=== PATIENT | female | born 1995 | race African-American/Black ===

== ENCOUNTER 2022-09-06 09:29 | Emergency (ER) | payer OTHER ==
[2022-09-06 09:41] VITALS: TEMP 98
[2022-09-06 10:07] VITALS: RESP 16
[2022-09-06] MEDS ORDERED: IBUPROFEN 800 MG TAB PO STA (10:16)
[2022-09-06] MEDS ORDERED: AMOXIC-POT CLAV 875-125MG 1 EACH TAB PO STA (10:18)
[2022-09-06] MEDS ORDERED: ACET/COD 300 MG/30 MG STARTER PACK 6 TAB BTL PO STA (10:20)
--- NOTE | 2022-09-06 10:20 | ED ---
General Adult HPI - General Chief complaint: Dental/Oral Stated complaint: Dental issues Time Seen by Provider: 09/06/22 09:55 Source: patient, RN notes reviewed, old records reviewed Mode of arrival: ambulatory Limitations: no limitations - History of Present Illness Initial comments: Patient is a 26-year-old female with no significant past medical history who presents emergency Department complaining of left lower dental pain for 3 days. Does have a dentist appointment in October. States it has been present for 3 days and has had issues in the past but this pain is worse. Denies any fevers or chills. Denies any difficulty in breathing or swallowing. States it hurts to chew. Denies any swelling inside of her mouth. Denies any tongue swelling. Lungs any nasal discharge. Occasional headache with this pain. Has no other acute complaints at this time. Presents for further evaluation at this time. - Related Data Previous Rx's Medication Instructions Recorded Amoxic-Pot Clav 875-125Mg 1 tab PO Q12HR 7 Days #14 tab 09/06/22 [Augmentin 875-125] Allergies Allergy/AdvReac Type Severity Reaction Status Date / Time No Known Allergies Allergy Verified 09/06/22 09:41 Review of Systems ROS Statement: Those systems with pertinent positive or pertinent negative responses have been documented in the HPI. Review of Systems: CONST: Denies fever EYES: Denies blurry vision ENT: Endorses dental pain C/V: Denies Chest pain RESP: Denies shortness of breath GI: Denies abdominal pain : Denies dysuria SKIN: Denies rash. MSK: Denies joint pain. NEURO: Denies headache ROS Other: All systems not noted in ROS Statement are negative. Past Medical History Past Medical History: No Reported History History of Any Multi-Drug Resistant Organisms: None Reported Additional Past Surgical History / Comment(s): left ankle Past Psychological History: No Psychological Hx Reported Smoking Status: Current every day smoker Past Alcohol Use History: Occasional Past Drug Use History: None Reported General Exam - General Exam Comments Initial Comments: General: Appears in no acute distress. HEAD: Normal with no signs of head trauma. EYES: EOMI. ENT: Patient does have tenderness over the left posterior most inferior tooth. Tooth #17. No obvious abscess. No tenderness in the gumline. No floor the mouth swelling or tenderness. No tongue swelling or tenderness. Uvula is midline. No uvular swelling. No stridor auscultated. No sinus tenderness to palpation. Tenderness localized to the tooth. The tooth itself appears intact with no obvious fractures. Tenderness on percussion and palpation. RESPIRATORY: No respiratory distress. Clear lungs bilaterally. No respiratory distress. C/V: Regular rate and rhythm. ABD: Abdomen is nondistended. EXT: No obvious deformity. SKIN: No rashes or lesions observed on exposed skin. NEURO: Alert and oriented. Limitations: no limitations Course Vital Signs 09/06/22 09/06/22 09:39 10:04 Temperature 98 F Pulse Rate 96 Respiratory 18 16 Rate Blood Pressure 154/100 O2 Sat by Pulse 98 Oximetry Medical Decision Making - Medical Decision Making Was pt. sent in by a medical professional or institution (, [facility], [facility]ER, urgent care, hospital, or longterm...) When possible be specific @ -No Did you speak to anyone other than the patient for history (EMS, parent, family, police, friend...)? What history was obtained from this source @ -No Did you review nursing and triage notes (agree or disagree)? Why? @ -I reviewed and agree with nursing and triage notes Were old charts reviewed (outside hosp., previous admission, EMS record, old EKG, old radiological studies, urgent care reports/EKG's, longterm records)? Report findings @ -No old charts were reviewed Differential Diagnosis (chest pain, altered mental status, abdominal pain women, abdominal pain men, vaginal bleeding, weakness, fever, dyspnea, syncope, headache, dizziness, GI bleed, back pain, seizure, CVA, palpatations, mental health, musculoskeletal)? @ -Tooth pain, tooth abscess, sinusitis, Cortez angina versus is not all inclusive. EKG interpreted by me (3pts min.). @ -None done X-rays interpreted by me (1pt min.). @ -None done CT interpreted by me (1pt min.). @ -None done U/S interpreted by me (1pt. min.). @ -None done What testing was considered but not performed or refused? (CT, X-rays, U/S, labs)? Why? @ -None What meds were considered but not given or refused? Why? @ -None Did you discuss the management of the patient with other professionals (professionals i.e. , [facility], WINDOW ASSEMBLER, lab, RT, psych nurse, dialysis social worker, crossing watchman, teacher, flight communications officer, ed case manager)? Give summary @ -No Was smoking cessation discussed for >3mins.? @ -No Was critical care preformed (if so, how long)? @ -No Were there social determinants of health that impacted care today? How? (Homelessness, low income, unemployed, alcoholism, drug addiction, transportation, low edu. Level, literacy, decrease access to med. care, senior living, rehab)? @ -No Was there de-escalation of care discussed even if they declined (Discuss DNR or withdrawal of care, Hospice)? DNR status @ -No What co-morbidities impacted this encounter? (DM, HTN, Smoking, COPD, CAD, Cancer, CVA, ARF, Chemo, Hep., AIDS, mental health diagnosis, sleep apnea, morbid obesity)? @ -None Was patient admitted / discharged? Hospital course, mention meds given and route, prescriptions, significant lab abnormalities, going to OR and other pertinent info. @ -Based on the patient's presentation and physical exam, I'm concerned for what appears to be toothache or possible cavity. No obvious infection appreciated. No obvious abscess appreciated. No evidence for Cortez angina as she is having no issues with swallowing or breathing, no stridor, no floor of the mouth swelling. Vital signs are within acceptable limits. I did discuss with the patient and I will provide her with follow-up contact info for a dentist as well as oral antibiotics. She'll also be given a starter pack for Tylenol threes. Patient was in agreement this plan. I will provide the patient with a prescription for Augmentin. I instructed the patient to follow up with their PCP in the next 1-3 days. I provided contact information for follow up with Dr. Hollingsworth of dentistry. I explained that the pat ient should return to the emergency department if they experience any worsening symptoms. Strict return precautions were discussed with the patient. The patient expressed understanding of these instructions. I answered all questions that the patient had. The patient was discharged home in good condition with their prescriptions and follow up information. Undiagnosed new problem with uncertain prognosis? @ -No Drug Therapy requiring intensive monitoring for toxicity (Heparin, Nitro, Insulin, Cardizem)? @ -No Were any procedures done? @ -No Diagnosis/symptom? @ -Toothache Acute, or Chronic, or Acute on Chronic? @ -Acute Uncomplicated (without systemic symptoms) or Complicated (systemic symptoms)? @ -Uncomplicated Side effects of treatment? @ -No Exacerbation, Progression, or Severe Exacerbation? @ -No Poses a threat to life or bodily function? How? (Chest pain, [place], [place], pneumonia, PE, COPD, DKA, ARF, appy, cholecystitis, CVA, Diverticulitis, Homicidal, Suicidal, threat to staff... and all critical care pts) @ -No Disposition Clinical Impression: Tooth ache Disposition: HOME SELF-CARE Condition: Good Instructions (If sedation given, give patient instructions): Toothache (ED) Prescriptions: Amoxic-Pot Clav 875-125Mg [Augmentin 875-125] 1 tab PO Q12HR 7 Days #14 tab Is patient prescribed a controlled substance at d/c from ED?: No Referrals: None,Stated [Primary Care Provider] - 1-2 days Dom Hollingsworth DDS [STAFF PHYSICIAN] - 1-2 days Time of Disposition: 10:12
[2022-09-06 10:53] VITALS: BP 140/78; PULSE 88
== END 2022-09-06 10:53 | disposition home or self-care (01) ==
LOC: EC 09:29
DX: K08.89 Other specified disorders of teeth and supporting structures (principal); F17.200 Nicotine dependence, unspecified, uncomplicated
CPT/HCPCS: 99282